=== PATIENT | female | born 1990 | race African-American/Black ===

== ENCOUNTER → 2019-03-29 10:43 | Outpatient (CLI) | payer OTHER, SELFPAY ==
--- NOTE | ~2019-03-29 | MR_ITS ---
EXAMINATION: MR lumbar spine wo con DATE: 03/29/2019 11:21 INDICATION: Low back pain. Bilateral leg pain. TECHNIQUE: Magnetic resonance imaging (MRI) of the lumbar spine was performed without intravenous con trast. Sequences included sagittal T2-weighted FSE, sagittal T2-weighted FS FSE, sagittal T1-weighted FSE, and axial T2-weighted FSE. COMPARISON: Lumbar spine MRI 09/01/2017, CT abdomen and pelvis 07/13/2018 FINDINGS: Bone alignment is normal. There are Schmorl's nodes at multiple levels. There is moderately decreased disc height at L5-S1. The distal spinal cord signal intensity is normal. The conus medulla ris is at L2. The following disc levels are specifically discussed: L1-L2: The disc does not extend beyond the endplate margin. There is mild bilateral facet joint osteo arthritis. There is no neural foraminal stenosis. There is no central canal stenosis. L2-L3: The disc does not extend beyond the endplate margin. There is mild bilateral facet joint osteo arthritis. There is no neural foraminal stenosis. There is no central canal stenosis. L3-L4: The disc does not extend beyond the endplate margin. There is mild bilateral facet joint osteo arthritis. There is no neural foraminal stenosis. There is no central canal stenosis. L4-L5: The disc is mildly bulging. There is mild bilateral facet joint osteoarthritis. There is mild bilateral neural foraminal stenosis. There is no central canal stenosis. L5-S1: The disc is bulging with superimposed right subarticular zone extrusion with mass effect on ri ght S1 nerve root in right lateral recess. There is mild right and moderate left facet joint osteoart hritis. There is mild bilateral neural foraminal stenosis. There is mild central canal stenosis. IMPRESSION: 1. Moderate lower lumbar spondylosis. Of note, an extrusion at L5-S1 exerts mass effect on right S1 n erve root. Reviewed, dictated and finalized at location [facility]. [employer]ER IMPRESSION: 1. Moderate lower lumbar spondylosis. Of note, an extrusion at L5-S1 exerts mas s effect on right S1 nerve root.
== END ==
PROVIDERS: Visit Provider Physician Assistant
DX: M47.26 Other spondylosis with radiculopathy, lumbar region (principal)
CPT/HCPCS: 72148

== ENCOUNTER 2020-03-04 02:04 | Outpatient (CLI) | payer BC, SELFPAY ==
[2020-03-04 20:39] LABS: SARS-CoV-2 RNA PCR Negative
== END 2020-03-04 02:05 | disposition home or self-care (01) ==
LOC: ANHCOVIDDT 02:05
PROVIDERS: PCP Family Medicine; Visit Provider Internal Medicine Gastroenterology
DX: Z01.812 Encounter for preprocedural laboratory examination (principal); Z20.828 Contact with and (suspected) exposure to other viral communicable diseases
CPT/HCPCS: 87635; C9803; U0003

== ENCOUNTER 2020-03-07 01:32 | Day surgery (SDC) | payer BC, SELFPAY ==
[2020-03-01 14:11] VITALS: BMI 25.9
--- NOTE | 2020-03-07 08:08 | WPDANESEPPF ---
Anes - Initial Pre Proc Eval Procedure: Operation Date: 03/07/20 11:00 Proposed Procedures p Colonoscopy - Som Tabares MD Date/Time: 03/07/20 08:08 Surgeon: Som Tabares MD Pre Op Diagnosis: Anemia/ Pos Hemoccult Card Patient Data Age: 29 Gender: F Height: 1.7 m Weight: 75 kg Allergies Allergy/AdvReac Type Severity Reaction Status Date / Time omeprazole Allergy Mild Dizziness Verified 03/07/20 10:23 Home Medications Medication Instructions Recorded Confirmed Type pantoprazole 40 mg tablet,delayed 40 mg PO QAM #30 tablet 02/23/20 03/01/20 Rx release cimetidine 400 mg tablet 400 mg PO DAILY PRN tablet 02/29/20 03/01/20 History ergocalciferol (vitamin D2) 1,250 1,250 mcg PO WEEKLY 02/29/20 03/01/20 History mcg (50,000 unit) capsule medroxyprogesterone 150 mg/mL 150 mg IM [id number] 02/29/20 03/01/20 History intramuscular suspension Patient hx anesthesia problems: none Family hx anesthesia problems: none PMFSH Past Medical History Medical History (Updated 02/29/20 @ 12:02 by Rachael Cote MD) Abnormal colonoscopy .2018 ileocolonic anastomosis ulcer - benign Colon ulcer ileocolonic anastomosis ulcer - benign .2018 colonoscopy Intervertebral disc disorder with radiculopathy of lumbar region Iron deficiency anemia hx of pediatric colon surgery .2018 colonoscopy: ileocolonic anastomosis ulcer - benign Sciatic leg pain Ulcer of intestine (05/23/18) ileocolonic anastomosis ulcer - benign .2018 colonoscopy Vitamin D deficiency, unspecified Surgical History Surgical History (Updated 02/29/20 @ 12:02 by Rachael Cote MD) Hx laparoscopic cholecystectomy 2019 Family History Family History (Updated 04/11/18 @ 08:46 by DOCTOR UNKNOWN) Father Cerebrovascular accident Patient's father is in good health Mother Patient's mother is in good health Other Diabetes mellitus Social History Social History Smoking status: Never smoker Alcohol intake: current Drinks per week: 1 Substance use: never Substance use type: does not use Living arrangements: with family Spiritual care concerns: No Anes - Eval Final PreProcedure Day of Procedure 03/07/20 08:08 Patient weight: overweight Heart: regular rate and rhythm Lungs: clear to auscultation and normal air movement Airway: Mallampati scale class II Neurological: alert and oriented Last oral intake: >/= 8 hours ASA classification: II Emergent: no Anesthetic plan: proceed Anesthesia type and monitoring: general GIVS Informed Consent: The patient's anesthetic plan and its attendant risks and benefits were discussed with the patient/family/POA. Questions were solicited and answers provided to the satisfaction of the patient/family/POA.
[2020-03-07 10:14] VITALS: BMI 24.1
[2020-03-07] MEDS: LACTATED RINGERS 1,000 ML 150 ML IV CONT (10:47)
--- NOTE | 2020-03-07 11:18 | WPDGICN ---
Assessment and Plan Assessment and plan (1) Iron deficiency anemia, unspecified: Code(s): D50.9 - Iron deficiency anemia, unspecified Status: Acute Assessment and Plan: Because of ongoing iron deficiency anemia colonoscopy an EGD will be performed today. Patient has a history of reflux as well as a history of an anastomotic colon ulcer. Long-term iron replacement is suggested. Follow-up CBC at intervals in the future also advised. Consider menstrual loss contributing to this as well depending on GI endoscopy findings. (2) GERD without esophagitis: Code(s): K21.9 - Gastro-esophageal reflux disease without esophagitis Status: Acute Assessment and Plan: Patient's GE reflux disease will be reassessed by EGD today. Because of ongoing iron deficiency. (3) Colon ulcer: Code(s): K63.3 - Ulcer of intestine Status: Acute Assessment and Plan: Patient has a history of an anastomotic colon ulcer after previous colon resection this with because of iron deficiency anemia follow-up colonoscopy will be performed. GI Consult Note Consult date/time: 03/07/20 11:18 HPI: Evonne Munoz is a 29 year old female Seen in evaluation at the request of Dr. Christiano Cote. Patient found to have routine iron deficiency anemia on routine screening exam. Patient denies any obvious bleeding. He denies abdominal pain. Current weight appetite bowel movements are normal. Patient has had no additional blood loss. Denies any blood in urine. Denies any bruises. Denies any nose bleeds. Family history is noncontributory. Patient has been treated with cimetidine and Protonix for dyspepsia. She has a history of partial colectomy period any history of an ileocolonic anastomotic ulcer in April 2018. Review of Systems Review of Systems: All systems reviewed & are unremarkable except as noted in HPI and below PMFSH Past Medical History Medical History (Updated 03/07/20 @ 11:20 by Som Tabares MD) Abnormal colonoscopy .2018 ileocolonic anastomosis ulcer - benign Colon ulcer ileocolonic anastomosis ulcer - benign .2018 colonoscopy Intervertebral disc disorder with radiculopathy of lumbar region Iron deficiency anemia hx of pediatric colon surgery .2018 colonoscopy: ileocolonic anastomosis ulcer - benign Sciatic leg pain Ulcer of intestine (05/23/18) ileocolonic anastomosis ulcer - benign .2018 colonoscopy Vitamin D deficiency, unspecified Surgical History Surgical History (Updated 02/29/20 @ 12:02 by Rachael Cote MD) Hx laparoscopic cholecystectomy 2019 Family History Family History (Updated 04/11/18 @ 08:46 by DOCTOR UNKNOWN) Father Cerebrovascular accident Patient's father is in good health Mother Patient's mother is in good health Other Diabetes mellitus Social History Social History Smoking status: Never smoker Alcohol intake: current Drinks per week: 1 Substance use: never Substance use type: does not use Living arrangements: with family Spiritual care concerns: No Meds Home Medications and Allergies Home Medications Medication Instructions Recorded Confirmed Type pantoprazole 40 mg tablet,delayed 40 mg PO QAM #30 tablet 02/23/20 03/01/20 Rx release cimetidine 400 mg tablet 400 mg PO DAILY PRN tablet 02/29/20 03/01/20 History ergocalciferol (vitamin D2) 1,250 1,250 mcg PO WEEKLY 02/29/20 03/01/20 History mcg (50,000 unit) capsule medroxyprogesterone 150 mg/mL 150 mg IM [id number] 02/29/20 03/01/20 History intramuscular suspension Allergies Allergy/AdvReac Type Severity Reaction Status Date / Time omeprazole Allergy Mild Dizziness Verified 03/07/20 10:23 Exam Narrative: Exam Narrative: Physical exam reveals patient to be alert. Vital signs stable. HEENT exam unremarkable. Lungs are clear to auscultation and percussion. Heart is without murmur or extra sounds. Abdomi
--- NOTE | 2020-03-07 12:05 | SUR.OPER ---
COLONOSCOPY START 1148, END 1155 EGD START 1201, END 1203
[2020-03-07 12:10] VITALS: BP 81/52; PULSE 70; RESP 20; O2SAT 100
[2020-03-07 12:20] VITALS: BP 90/56; PULSE 81; RESP 20; O2SAT 100
[2020-03-07 12:30] VITALS: BP 95/63; PULSE 62; RESP 17; O2SAT 100
== END 2020-03-07 12:42 | disposition home or self-care (01) ==
PROVIDERS: PCP Family Medicine; Visit Provider Internal Medicine Gastroenterology
PROC: 0DJD8ZZ Inspection of Lower Intestinal Tract, Via Natural or Artificial Opening Endoscopic (ICD-10-PCS; CPT 45378; principal; 2020-03-07 11:00)
DX: D50.9 Iron deficiency anemia, unspecified (principal); K21.9 Gastro-esophageal reflux disease without esophagitis; K63.89 Other specified diseases of intestine; K63.3 Ulcer of intestine; Z90.49 Acquired absence of other specified parts of digestive tract; Z98.0 Intestinal bypass and anastomosis status; E55.9 Vitamin D deficiency, unspecified
CPT/HCPCS: 43235; 45380; 88305; J2704; J7120

== ENCOUNTER 2020-08-07 14:09 | Outpatient (RCR) | payer BC, OTHER, SELFPAY ==
[2020-08-07] VITALS (7 sets, daily range): BP systolic 103–109; BP diastolic 59–69; PULSE 78–92; RESP 15–16; TEMP 36.4–36.8; O2SAT 96–100
[2020-08-07 15:04] LABS: Hematocrit 22.6 % (37.0-47.0)
[2020-08-07 15:09] LABS: Hemoglobin 6.2 g/dL (12.0-15.0)
[2020-08-07] MEDS: diphenhydrAMINE HCl CAP 25 MG CAPSULE PO (15:10)
[2020-08-07] MEDS: ACETAMINOPHEN 325 MG TABLET 650 MG PO (15:10)
[2020-08-07] MEDS: SODIUM CHLORIDE 0.9% IV 250 ML 30 ML IV CONT (15:10)
[2020-08-07] MEDS: TUBING, BLOOD PLUM PUMP TUBING 1 EACH XX (15:30)
== END 2020-11-04 23:59 | disposition home or self-care (01) ==
LOC: ANHCPCTRAN 14:09
PROVIDERS: PCP Family Medicine; Visit Provider Internal Medicine Medical Oncology
DX: D64.9 Anemia, unspecified (principal)
CPT/HCPCS: 36415; 36430; 85014; 85018; 86850; 86900; 86901; 86920; A9270; J7050; P9016

== ENCOUNTER → 2020-09-02 02:27 | Outpatient (CLI) | payer BC, OTHER, SELFPAY ==
[2020-09-02 19:19] LABS: SARS-CoV-2 RNA PCR Negative
== END ==
PROVIDERS: PCP Family Medicine; Visit Provider Internal Medicine Gastroenterology
DX: Z01.818 Encounter for other preprocedural examination (principal); Z20.822 Contact with and (suspected) exposure to COVID-19
CPT/HCPCS: C9803; U0003; U0005

== ENCOUNTER 2020-09-02 05:44 | Outpatient (CLI) | payer BC, OTHER, SELFPAY ==
[2020-08-20 15:16] VITALS: BMI 25.9
--- NOTE | 2020-09-02 06:55 | SUR.OPER ---
Patient brought to GI Lab. Instructions for patient undergoing PATENCY Capsule Endoscopy reviewed with patient. Consent form signed. Patient swallowed capsule with 12 ozs of water . Patient instructed they may have clear liquids at 0830 this AM and eat or drink at 1030 this AM. Patient instructed to WATCH FOR CAPSULE TO PASS GET KUB AFTER 30 HOURS IF NOT SEEN call [phone] or to return to the hospital ER if any nausea and vomiting or abdominal pain is experienced.
== END 2020-09-02 05:45 | disposition home or self-care (01) ==
PROVIDERS: PCP Family Medicine; Visit Provider Internal Medicine Gastroenterology
PROC: 0DJ07ZZ Inspection of Upper Intestinal Tract, Via Natural or Artificial Opening (ICD-10-PCS; CPT 91110; principal; 2020-09-02 07:00)
DX: D50.9 Iron deficiency anemia, unspecified (principal); K63.3 Ulcer of intestine
CPT/HCPCS: 91110

== ENCOUNTER 2020-09-04 15:14 | Outpatient (CLI) | payer BC, OTHER, SELFPAY ==
--- NOTE | ~2020-09-04 | XR_ITS ---
XR abdomen/kub 1V DATE: 09/04/2020 15:46 INDICATION: Given patency capsule study 09/02/2020. Anemia. TECHNIQUE: AP projection, 2 views COMPARISON: None FINDINGS: Surgical clips, right upper quadrant, consistent with cholecystectomy. The lung bases appear clear. No pleural effusions are evident. No visceromegaly is evident. The psoas shadows appear intact. There is no evidence of bowel obstructi on. IMPRESSION: Nonspecific abdomen Status post cholecystectomy Reviewed, dictated and finalized at [facility]. Reviewed, dictated and finalized at location [facility].
== END 2020-09-04 15:15 | disposition home or self-care (01) ==
LOC: ANHIMG 15:22
PROVIDERS: PCP Family Medicine; Visit Provider Internal Medicine Gastroenterology
DX: Z13.0 Encounter for screening for diseases of the blood and blood-forming organs and certain disorders involving the immune mechanism (principal); Z90.49 Acquired absence of other specified parts of digestive tract
CPT/HCPCS: 74018

== ENCOUNTER 2020-09-05 00:38 | Day surgery (SDC) | payer OTHER, BC, SELFPAY ==
[2020-08-28 17:48] VITALS: BMI 25.9
[2020-09-05 06:31] VITALS: BP 105/64; PULSE 77; RESP 16; TEMP 36.2; O2SAT 100; BMI 24.3
[2020-09-05] MEDS: LACTATED RINGERS 1,000 ML 150 ML IV CONT (06:44)
--- NOTE | 2020-09-05 06:47 | WPDANESEPPF ---
Anes - Initial Pre Proc Eval Procedure: Operation Date: 09/05/20 07:00 Proposed Procedures p Flexible Sigmoidoscopy - Som Tabares MD s [place] Capsule Endoscopy - Som Tabares MD Date/Time: 09/05/20 06:47 Surgeon: Som Tabares MD Pre Op Diagnosis: iron def. anemia, colon ulcer Patient Data Age: 30 Gender: F Height: 5 ft 7 in Weight: 70.4 kg Last Vital Signs Temp 36.2 C L 09/05/20 06:31 Pulse 77 09/05/20 06:31 Resp 16 09/05/20 06:31 BP 105/64 09/05/20 06:31 Pulse Ox 100 09/05/20 06:31 Allergies Allergy/AdvReac Type Severity Reaction Status Date / Time omeprazole Allergy Mild Dizziness Verified 09/05/20 06:29 Home Medications Medication Instructions Recorded Confirmed Type ergocalciferol (vitamin D2) 1,250 1,250 mcg PO WEEKLY 02/29/20 08/28/20 History mcg (50,000 unit) capsule medroxyprogesterone 150 mg/mL 150 mg IM [id number] 02/29/20 08/28/20 History intramuscular suspension ferrous sulfate 325 mg PO BID 03/13/20 08/28/20 History mesalamine 800 mg PO TID 03/13/20 08/28/20 History Patient hx anesthesia problems: none Family hx anesthesia problems: none PMFSH Past Medical History Medical History Abnormal colonoscopy colonoscopy:fedder: ulcers at ileosigmoid anastomosis ileocolonic anastomosis ulcer - benign Colon ulcer colonoscopy:fedder:recurrent ulcers at ileosigmoid anastomosis colonoscopy ileocolonic anastomosis ulcer - benign Intervertebral disc disorder with radiculopathy of lumbar region Iron deficiency anemia hx of pediatric colon surgery colonoscopy: ileocolonic anastomosis ulcer - benign Sciatic leg pain Ulcer of intestine (05/23/18) ileocolonic anastomosis ulcer - benign colonoscopy Vitamin D deficiency, unspecified Surgical History Surgical History History of esophagogastroduodenoscopy (EGD) 03.06.20 normal History of partial colectomy Hx laparoscopic cholecystectomy 2019 Family History Family History Father Cerebrovascular accident Patient's father is in good health Mother Patient's mother is in good health Other Diabetes mellitus Social History Social History Smoking status: Never smoker Second hand tobacco smoke exposure: No Alcohol intake: current Drinks per week: 1 Substance use: never Substance use type: does not use Living arrangements: with family Gender identity (if verbalized by the patient): Female Spiritual care concerns: No Anes - Eval Final PreProcedure Day of Procedure 09/05/20 06:47 Patient weight: normal Heart: regular rate and rhythm Lungs: clear to auscultation Airway: Mallampati scale class 1 Neurological: alert and oriented Last oral intake: >/= 8 hours ASA classification: II Emergent: no Anesthetic plan: proceed Anesthesia type and monitoring: general GIVS and standard monitoring Informed Consent: The patient's anesthetic plan and its attendant risks and benefits were discussed with the patient/family/POA. Questions were solicited and answers provided to the satisfaction of the patient/family/POA.
--- NOTE | 2020-09-05 07:22 | WPDGICN ---
Assessment and Plan Assessment and plan (1) Iron deficiency anemia, unspecified: Code(s): D50.9 - Iron deficiency anemia, unspecified Status: Acute Assessment and Plan: Patient has ongoing iron deficiency anemia. Now followed by Hematology as well. Most likely etiology is been ileocolonic ulcerations. Patient is currently on a trial of mesalamine. But this appears to be persistent. Iron replacement under the direction hematology. Other potential etiologies for her anemia include long-term PPI use. This has been advised to be held. She also continues to have menses which may contribute to her anemia. Follow-up colonoscopy to be performed today. 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 Subtotal colectomy has been identified. (3) Colon ulcer: Code(s): K63.3 - Ulcer of intestine Status: Acute Assessment and Plan: Patient has a history of ileocolonic ulceration. No specific etiology for this is evident. Plan is to repeat evaluation with endoscopy today. Additional biopsies will be taken. Patient has been on a trial of mesalamine. Which will be reconsidered. (4) GERD without esophagitis: Code(s): K21.9 - Gastro-esophageal reflux disease without esophagitis Status: Acute Assessment and Plan: Patient has a history of GE reflux disease. However no longer complains of heartburn. Recent EGD in April of 2018 and again in February of 2020 were both unremarkable. Ppi therapy has been stopped. Antacids can be taken as needed. GI Consult Note Consult date/time: 09/05/20 07:22 HPI: Evonne Munoz is a 30 year old female Seen in evaluation at the request of Dr. Cote. Patient has a history of iron deficiency anemia identified on routine screening April of 2018. At that time ileocolonic an ulcer anastomosis was identified. 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 She had a subtotal colectomy. She has been treated for GE reflux disease. In February of 2020 follow-up flexible sigmoidoscopy revealed persistent ulceration at the ileocolonic anastomosis. EGD was unremarkable. She is continued to be anemic with iron deficient indices since that time. She now sees hematology, Dr. Baez. Because of ongoing iron deficiency patient is now on a trial of mesalamine. Her PPI therapy has been discontinued because of recent normal EGD. No ongoing heartburn. Patient reports that she has normal menses. Her appetite is normal. Her activity is good. She denies any obvious blood in her stools. She has no obvious bleeding elsewhere. No bruising. She has received transfusions and iron replacement under the direction of hematology. Patient presents today for follow-up exam to determine status of ileocolonic ulcerations. Small bowel capsule study will be performed later in the day. Review of Systems Review of Systems: All systems reviewed & are unremarkable except as noted in HPI and below PMFSH Past Medical History Medical History Abnormal colonoscopy colonoscopy:fedder: ulcers at ileosigmoid anastomosis ileocolonic anastomosis ulcer - benign Colon ulcer colonoscopy:fedder:recurrent ulcers at ileosigmoid anastomosis .2018 colonoscopy ileocolonic anastomosis ulcer - benign Intervertebral disc disorder with radiculopathy of lumbar region Iron deficiency anemia hx of pediatric colon surgery colonoscopy: ileocolonic anastomosis ulcer - benign Sciatic leg pain Ulcer of intestine (05/23/18) ileocolonic anastomosis ulcer - benign .2018 colonoscopy Vitamin D deficiency, unspecified Surgical History Surgical History (Reviewed 09/05/20 @ 06:47 by Diomdees Walsh
[2020-09-05 07:26] VITALS: BP 92/63; PULSE 68; RESP 20; O2SAT 100
[2020-09-05 07:36] VITALS: BP 97/63; PULSE 64; RESP 18; O2SAT 100
[2020-09-05 07:45] VITALS: BP 105/49; PULSE 69; RESP 22; O2SAT 100
== END 2020-09-05 08:36 | disposition home or self-care (01) ==
PROVIDERS: PCP Family Medicine; Visit Provider Internal Medicine Gastroenterology
PROC: 0DJD8ZZ Inspection of Lower Intestinal Tract, Via Natural or Artificial Opening Endoscopic (ICD-10-PCS; CPT 45330; principal; 2020-09-05 07:00)
PROC: 0DJ07ZZ Inspection of Upper Intestinal Tract, Via Natural or Artificial Opening (ICD-10-PCS; CPT 91110; 2020-09-05 07:00)
DX: D50.9 Iron deficiency anemia, unspecified (principal); K52.9 Noninfective gastroenteritis and colitis, unspecified; K63.3 Ulcer of intestine; K21.9 Gastro-esophageal reflux disease without esophagitis; Z90.49 Acquired absence of other specified parts of digestive tract; Z98.0 Intestinal bypass and anastomosis status
CPT/HCPCS: 45331; 88305; 91110; J2704; J7120

== ENCOUNTER 2022-02-11 06:36 | Observation (INO) | payer OTHER, SELFPAY ==
[2022-02-11] VITALS (18 sets, daily range): BP systolic 103–138; BP diastolic 64–84; PULSE 72–91; RESP 14–22; TEMP 36.4–37.3; O2SAT 97–100
--- NOTE | 2022-02-11 07:10 | PC.NURSE ---
Patient report given to ENRIQUE Bernabe. All questions answered and care of patient transferred.
[2022-02-11 07:45] LABS: INR 1.1; Prothrombin Time 13.6 Seconds (11.1-14.7)
[2022-02-11 07:46] LABS: Partial Thromboplastin Time 22.2 SECONDS (22.3-36.8)
[2022-02-11 07:49] LABS: Anion Gap 10 mmol/L (8-16); Blood Urea Nitrogen 10 mg/dL (7-17); Calcium 8.3 mg/dL (8.4-10.2); Carbon Dioxide 17 mmol/L (22-30); Chloride 110 mmol/L (98-107); Estimated CRCL calculation 87 ml/min; Estimated Glomerular Filt Rate > 60; Glucose 95 mg/dL (65-110); Potassium 3.7 mmol/L (3.4-5.0); Sodium 137 mmol/L (137-145)
[2022-02-11 07:53] LABS: Basophils Absolute Auto 0.1 K/mm3 (0.0-0.1); Eosinophils Absolute Auto 0.1 K/mm3 (0-0.3); Eosinophils Percent Auto 1.5 % (0-4.4); Immature Granulocyte Absolute 0.02 K/mm3 (0.00-0.031); Immature Granulocyte Percent A 0.3 % (0-0.5); Immature Platelet Fraction Pct 15.4 % (0.9-11.2); Lymphocytes Absolute Auto 2.07 K/mm3 (0.9-3.2); Lymphocytes Percent Auto 33.6 % (18.3-44.2); Mean Corpuscular HGB Conc 24.4 g/dl (32-36); Mean Corpuscular Volume 57.4 fl (80-100); Monocytes Absolute Auto 0.5 K/mm3 (0.1-0.6); Monocytes Percent Auto 8.4 % (2.6-8.5); Neutrophils Absolute Auto 3.4 K/mm3 (1.3-6.7); Neutrophils Percent Auto 55.2 % (45.5-73.1); Platelet Count Result 261 k/mm3 (150-375); Red Blood Count 3.64 M/mm3 (4.2-5.4); White Blood Count 6.2 K/mm3 (4.5-10.0)
[2022-02-11 07:55] LABS: Hematocrit 20.9 % (37.0-47.0); Hemoglobin 5.1 g/dL (12.0-15.0)
[2022-02-11 07:57] LABS: Hypochromasia 3+ (NORMAL); Platelet Estimate Adequate (Adequate)
[2022-02-11 07:58] LABS: Anisocytosis 3+ (NORMAL); Ovalocytes 2+ (NORMAL); Poikilocytosis 3+ (NORMAL); Schistocytes 2+ (NORMAL); Target Cells 2+ (NORMAL); Tear Drop Cells 2+ (NORMAL)
[2022-02-11 08:57] LABS: SARS-CoV-2 RNA PCR Negative
--- NOTE | 2022-02-11 08:59 | ED.GENADULT ---
HPI - General Adult General Chief complaint: Recheck/Abnormal Lab/Rx Stated complaint: anemia Time Seen by Provider: 02/11/22 07:29 Source: patient Mode of arrival: ambulatory Limitations: no limitations History of Present Illness HPI narrative: 31 years old dark skinned female presents with feeling tired weak lethargic sleepy shortness of breath for the last few days/weeks, history of iron deficiency anemia 3 years ago, last blood transfusion 1 year ago, history of 80% colectomy when she was a baby, currently on Depo shot, no menstrual cycle for the last 13 years. She denies any fever, chills, nausea, vomiting, chest pain or abdominal pain. Last time was seen by her family physician over 2 years ago, currently on iron supplement. Related Data Home Medications Medication Instructions Recorded Confirmed ergocalciferol (vitamin D2) 1,250 1,250 mcg PO WEEKLY 02/29/20 08/28/20 mcg (50,000 unit) capsule medroxyprogesterone 150 mg/mL 150 mg IM [id number] 02/29/20 09/05/20 intramuscular suspension (Depo-Provera) ferrous sulfate 325 mg (65 mg 325 mg PO BID 03/13/20 08/28/20 iron) tablet mesalamine 800 mg tablet,delayed 800 mg PO TID 03/13/20 08/28/20 release Allergies Allergy/AdvReac Type Severity Reaction Status Date / Time omeprazole AdvReac Mild Dizziness Verified 02/11/22 06:37 Review of Systems Review of Systems: All systems reviewed & are unremarkable except as noted in HPI and below PMFSH Past Medical History Medical History Abnormal colonoscopy colonoscopy:fedder: ulcers at ileosigmoid anastomosis ileocolonic anastomosis ulcer - benign Colon ulcer colonoscopy:fedder:recurrent ulcers at ileosigmoid anastomosis colonoscopy ileocolonic anastomosis ulcer - benign Intervertebral disc disorder with radiculopathy of lumbar region Iron deficiency anemia hx of pediatric colon surgery colonoscopy: ileocolonic anastomosis ulcer - benign Sciatic leg pain Ulcer of intestine (05/23/18) ileocolonic anastomosis ulcer - benign colonoscopy Vitamin D deficiency, unspecified Surgical History Surgical History History of esophagogastroduodenoscopy (EGD) 11..20 normal History of partial colectomy Hx laparoscopic cholecystectomy 2019 Family History Family History Father Cerebrovascular accident Patient's father is in good health Mother Patient's mother is in good health Other Diabetes mellitus Social History Social History Smoking status: Never smoker Second hand tobacco smoke exposure: No Alcohol intake: current Drinks per week: 1 Substance use: never Substance use type: does not use Gender identity (if verbalized by the patient): Female Spiritual care concerns: No Exam Narrative: General appearance: Well-developed, well-nourished Skin: Pale Head: Normocephalic, nontraumatic Eyes: Clear conjunctiva ENT: Oropharynx normal, ears normal, nose normal Neck: Supple, nontender Chest and respiratory: Airway patent, no respiratory distress, no accessory muscle use Heart: Regular rate/rhythm Abdomen: Soft, nontender, no organomegaly, quiet bowel sounds Vascular: Normal peripheral pulses, normal capillary refill. Musculoskeletal: Normal range of motion, nontender back Neurologic: Alert and oriented ?3, SUPERINTENDENT OVERHEAD DISTRIBUTION is normal as tested, no gross motor deficit Course Vital Signs Vital signs: Vital Signs Temperature 36.4 C 02/11/22 06:46 Pulse Ra
[2022-02-11] MEDS: SODIUM CHLORIDE 0.9% IV 250 ML 30 ML IV CONT (09:41)
[2022-02-11] MEDS: TUBING, BLOOD PLUM PUMP TUBING 1 EACH XX (09:41)
[2022-02-11 10:57] LABS: Iron 16 ug/dL (37-170)
[2022-02-11 11:06] LABS: Percent Iron Saturation 3 % (20-50)
--- NOTE | 2022-02-11 11:26 | ADMGEN ---
This patient, Evonne Munoz, was admitted to 3 [facility] Surg Room 301-01. Patient/family oriented to hospital policies and general routines including ID bracelet, bed and alarms, visiting hours, pain management, procedures, bathroom and other care routines, personal items, smoking policy, room service/diet, and visiting hours. Information on how to activate the Rapid Response Team has been discussed. Patient/Family are encouraged to report perceived risks to care and to ask questions if they do not understand what they are told or what they should do. Patient in bed with no complaints at this time.
[2022-02-11 11:35] LABS: Ferritin 2.99 ng/mL (6.24-137)
--- NOTE | 2022-02-11 14:42 | PM.IMHP ---
H&P: HPI History of Present Illness Date/Time: 02/11/22 14:42 Chief Complaint: Anemia Narrative: This is a 31-year-old female patient who came to the emergency room after feeling tired weak and lethargic. 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 The patient does have a history of iron deficiency anemia. She stated that the iron upsets her stomach. She did find some liquid iron that she could take but does not always take it. She has had iron deficiency anemia for 3 years. Her last blood transfusion was 1 year ago. 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 At 1 point the patient was told that her iron deficiency was due to her. However she has had no minutes Petterchak cycle for the last 13 years and has been on the Depo shot. The last time she saw her primary care doctor was 2 years ago. She has no active bleeding at this time no GI bleed no hematemesis. Her H&H is 5.1 and 20.9. Her iron is 16 and her TIBC is 561. Ferritin is 2.99. She is negative for COVID. The patient is being admitted to observation status on the date of service of 02/11/2022. Review of Systems Review of Systems: See HPI All systems reviewed & are unremarkable except as noted in HPI and below Constitutional: Constitutional: Reports as per HPI and Reports no additional constitutional complaints Eyes: Eyes: Reports as per HPI and Reports no additional eye complaints ENT: Reports system reviewed and no additional complaints, except as documented and Reports Normal hearing present Cardiovascular: Cardiovascular: Reports no additional cardiovascular complaints Respiratory: Respiratory: Reports no additional respiratory complaints and Reports no additional respiratory complaints Gastrointestinal: Gastrointestinal: Reports as per HPI and Reports no additional gastrointestinal complaints Musculoskeletal: Musculoskeletal: Reports no additional musculoskeletal complaints Integumentary/Breasts: Skin/Breast: Reports system reviewed and no additional complaints, except as docu and Reports as per HPI Neurologic: Reports system reviewed and no additional complaints, except as documented, Reports as per HPI and Reports Normal hearing present Psychiatric: Psychiatric: Reports no additional psychiatric complaints and Reports as per HPI Endocrine: Endocrine: Reports no additional endocrine complaints Hematologic/Lymphatic: Hematologic/Lymphatic: Reports no additional hematologic/lymphatic complaints Allergic/Immunologic: Allergic/Immunologic: Reports no additional allergic/immunologic complaints PMFSH Past Medical History Medical History Abnormal colonoscopy colonoscopy:fedder: ulcers at ileosigmoid anastomosis .2018 ileocolonic anastomosis ulcer - benign Colon ulcer colonoscopy:fedder:recurrent ulcers at ileosigmoid anastomosis .2018 colonoscopy ileocolonic anastomosis ulcer - benign Intervertebral disc disorder with radiculopathy of lumbar region Iron deficiency anemia hx of pediatric colon surgery colonoscopy: ileocolonic anastomosis ulcer - benign Sciatic leg pain Ulcer of intestine (05/23/18) ileocolonic anastomosis ulcer - benign .2018 colonoscopy Vitamin D deficiency, unspecified Surgical History Surgical History (Updated 02/11/22 @ 14:59 by Bethany Francois NP) H/O inguinal hernia repair History of esophagogastroduodenoscopy (EGD) 03.06.20 normal History of partial colectomy Hx laparoscopic cholecystectomy 2018 Family History Family History Father Cerebrovascular accident Patient's father is in good health Mother Patient's mother is in good health Other Diabetes mellitus Social History Social History (Updated 02/11/22 @ 14:55 by Elena
[2022-02-11] MEDS: POLYSACCHARIDE IRON COMPLEX 150 MG CAPSULE PO (16:32)
[2022-02-11] MEDS: IRON SUCROSE COMPLEX 200 MG in SODIUM CHLORIDE 0.9% IV 50 ML 120 MG IVPB (16:32)
[2022-02-11 17:17] LABS: Hematocrit 28.9 % (37.0-47.0); Hemoglobin 8.1 g/dL (12.0-15.0)
[2022-02-11 18:16] LABS: IFOB Positive Control Positive; Immunochemical Fecal Occult Bl Positive (N)
== END 2022-02-11 18:12 | disposition left against medical advice (07) ==
LOC: ANHED 09:03 → ANH3MEDSUR 10:50
PROVIDERS: Emergency Medicine; Nurse Practitioner; Admitting Provider Internal Medicine; Emergency Provider Emergency Medicine; PCP Family Medicine; Visit Provider Internal Medicine
DX: D64.9 Anemia, unspecified (principal); R53.83 Other fatigue; R53.1 Weakness; R06.02 Shortness of breath; Z87.898 Personal history of other specified conditions; Z86.2 Personal history of diseases of the blood and blood-forming organs and certain disorders involving the immune mechanism; Z90.49 Acquired absence of other specified parts of digestive tract; Z53.29 Procedure and treatment not carried out because of patient's decision for other reasons; E55.9 Vitamin D deficiency, unspecified; Z20.822 Contact with and (suspected) exposure to COVID-19; Z79.3 Long term (current) use of hormonal contraceptives; Z79.899 Other long term (current) drug therapy
CPT/HCPCS: 36415; 36430; 80048; 82274; 82728; 83540; 83550; 85014; 85018; 85025; 85055; 85610; 85730; 86850; 86900; 86901; 86920; 96374; 99285; A9270; C9803; G0378; J1756; J7050; P9016; U0003; U0005

== ENCOUNTER → 2022-03-10 08:44 | Outpatient (CLI) | payer OTHER, SELFPAY ==
--- NOTE | ~2022-03-10 | DEXA_ITS ---
Bone Density Report Name: MARS VYAS Age: 31 Sex: Female Ethnicity: White Date of : 1990 Indication: Depo Shot Usage Referring Provider: HELEN, DEBBIE Study: Bone densitometry was performed. Exam Date: March 10, 2022 Accession number: [id number] Bone Density: Region BMD T-score Z-score Classification AP Spine (L1-L4) 1.089 0.4 0.4 Normal Femoral Neck (Left) 0.687 -1.5 -1.4 Osteopenia Total Hip (Left) 0.869 -0.6 -0.6 Normal Femoral Neck (Right) 0.699 -1.4 -1.3 Osteopenia Total Hip (Right) 0.848 -0.8 -0.7 Normal Total Hip Mean 0.859 -0.7 -0.7 Normal World Health Organization criteria for BMD impression classify patients as: Normal (T-score at or above -1.0), Osteopenia (T-score between -1.0 and -2.5), or Osteoporosis (T-score at or below -2.5). 10-year Fracture Risk: FRAX not reported because: Premenopausal woman Previous Exams: Region Exam Age BMD T-score BMD Change BMD Change Date g/cm2 vs Baseline vs Previous AP Spine(L1-L4) 03/10/2022 31 1.089 0.4 -0.055* -0.055* 05/11/2018 28 1.144 0.9 Total Hip(Left) 03/10/2022 31 0.869 -0.6 -0.051* -0.051* 05/11/2018 28 0.920 -0.2 Total Hip(Right) 03/10/2022 31 0.848 -0.8 -0.040* -0.040* 05/11/2018 28 0.888 -0.4 *Denotes significance at 95% confidence level, LSC for AP Spine = 0.022 g/cm2, LSC for Total Hip = 0.027 g/cm2 Clinical Information Provided by Patient: Has used the following medications: Vitamin D, DEPO shot, MTV Patient maximum height was 67.75 No regular weight bearing exercise Drinks caffeinated beverages Onset of menses at age 14 Premenopausal Number of children 0 Missed period for more than 6 months in a row Impression: The patient's bone mass is within expected range for age, gender and ethnicity. The BMD for the AP Spine(L1-L4) decreased, changing by -0.055 since the last DXA exam. The BMD for the Total Hip(Left) decreased, changing by -0.051 since the last DXA exam. The BMD for the Total Hip(Right) decreased, changing by -0.040 since the last DXA exam. Discussion: BONE DENSITY IS WITHIN EXPECTED LIMITS FOR AGE, SEX AND RACE. Bone density is within expected limits for age, sex and race at all sites measured. The patient should follow a healthful lifestyle (good nutrition with adequate calcium and vitamin D, and appropriate weight-bearing exercise). Follow-Up: Consider repeating this study in 2 years
== END ==
PROVIDERS: PCP Family Medicine; Visit Provider Nurse Practitioner
DX: Z78.0 Asymptomatic menopausal state (principal); Z13.820 Encounter for screening for osteoporosis; Z79.3 Long term (current) use of hormonal contraceptives; M85.852 Other specified disorders of bone density and structure, left thigh; M85.851 Other specified disorders of bone density and structure, right thigh
CPT/HCPCS: 77080

== ENCOUNTER 2022-09-11 08:04 | Outpatient (CLI) | payer OTHER, SELFPAY ==
[2022-09-11 09:00] LABS: Hematocrit 31.2 % (37.0-47.0); Hemoglobin 8.8 g/dL (12.0-15.0); Immature Platelet Fraction Pct 9.6 % (0.9-11.2); Mean Corpuscular HGB Conc 28.2 g/dl (32-36); Mean Corpuscular Hemoglobin 20.4 pg (26-34); Mean Corpuscular Volume 72.4 fl (80-100); Platelet Count Result 242 k/mm3 (150-375); Red Blood Count 4.31 M/mm3 (4.2-5.4); Red Cell Distribution Width 29.8 % (11.5-14.5); White Blood Count 6.2 K/mm3 (4.5-10.0)
[2022-09-11 09:24] LABS: Iron 30 ug/dL (37-170)
[2022-09-11 09:34] LABS: Percent Iron Saturation 7 % (20-50)
[2022-09-11 10:24] LABS: Folic Acid 11.7 ng/mL (2.76->20)
== END 2022-09-11 08:05 | disposition home or self-care (01) ==
PROVIDERS: PCP Family Medicine; Visit Provider Internal Medicine Hematology & Oncology
DX: D64.9 Anemia, unspecified (principal)
CPT/HCPCS: 36415; 82607; 82728; 82746; 83540; 83550; 85027; 85055

== ENCOUNTER 2024-11-28 15:20 | Outpatient (CLI) | payer OTHER, SELFPAY ==
--- OUTSIDE RECORDS SUMMARY | 2024-11-28 15:24 | XMS_ITS | Clinical Summary ---
Author Organization [facility] Address [address] [place] [address] Care Team Providers Care Auto Phone Installer Name Role Phone Rachael Cote MD Primary Care Provider [phone] Source Comments [facility],non-owned Affiliates and Associated Physician Practices is amultiple site organization consisting of ambulatory clinics and hospital sitesin [place], [place], [place] and [place]. This disclosure is being madepursuant to the Care Everywhere program and may not contain all information available regarding this patient. 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 Gender Identity Not on file Sexual Orientation Not on file Plan of Treatment Health Maintenance Due Date Last Done Comments HIV SCREENING 2006 HEPATITIS C SCREENING 04/08/2009 DTAP/TDAP/TD VACCINES (1 - Tdap) 2010 HEPATITIS B VACCINE (1 of 3 - 19+ 3-dose series) 2010 HPV VACCINE (1 - 3-dose SCDM series) 2018 COVID-19 VACCINE (1 - 2023-2 5 season) 2023 DEPRESSION SCREENING 04/26/2024 INFLUENZA VACCINE (#1) 2024 ZOSTER VACCINE (1 of 2) 2041 HIB VACCINE Aged Out No longer eligi ble based on patient's age to complete this topic MENINGOCOCCAL (Group B) VACC INE SHARED DECISION-MAKING Aged Out No longer eligibl e based on patient's age to complete this topic MENINGOCOCCAL GROUPS A/C/Y/W VACCINE Aged Out No longer eligible b ased on patient's age to complete this topic PNEUMOCOCCAL VACCINE Aged Out No long er eligible based on patient's age to complete this topic Insurance [facility] Address: [facility] CLAIMS [facility] [address] [place] [address] Care Teams Auto Phone Installer Relationship Specialty Start Date End Date Rachael Cote MD [address] [place] [address] PCP - General 05/31/18
--- OUTSIDE RECORDS SUMMARY | 2024-11-28 15:24 | XMS_ITS | Clinical Summary ---
Author Organization [facility] Address [address] [place] [address] Phone Care Team Providers Care Finance Consultant Name Role Phone Rachael Cote MD Primary Care Provider Allergies No known active allergies Medications cholecalcifero l, Vitamin D3, 50 mcg (2,000 unit) Tablet Take 2,000 Units by mouth daily. Active iron bis-gly/FA/C/B 12/Ca/succ (IRON-150 ORAL) Take 1 Tablet by mouth daily. Active medroxyPROGEST ERone (DEPO-PROVERA) 150 mg/mL Suspension Inject 150 mg by intramuscular injection every 90 days. Active Active Problems Problem Noted Date Diagnosed Date HNP (herniated nucleus pulposus), lumbar 020 Immunizations Immunization Administration Dates Next Due ([employer])(12 YR UP) COVID-19 VACCINE - EMERGENCY USE AUTHORIZATION, MRNA, [id number]) 30 MCG/0.3 ML IM SUSP 07/17/2020,06/25/2020 Influenza Seasonal Unspecified Formulation IM Social History Tobacco Use Types Packs/Day Years Used Date Smoking Tobacco: Never Smokeless Tobacco: Never Tobacco Cessation:Counseling Given: Not Answered Alcohol Use Standard Drinks/Week Comments Yes 1 (1 standard drink = 0.6 oz pur e alcohol) social occasional Comments No Sex and Gender Information Value Date Recorded Sex Assigned at Not on file 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 Gender Identity Not on file Sexual Orientation Not on file Last Filed Vital Signs Vital Sign Reading Time Taken Comments Blood Pressure 104/64 09/25/2022 10:58 AM CDT Pulse 93 09/25/2022 10:58 AM CDT Temperature 36.1 C (97 F) 09/25/2022 10:58 AM CDT Respiratory Rate 10 09/25/2022 10:58 AM CDT Oxygen Saturation 100% 09/25/2022 10:58 AM CDT Inhaled Oxygen Concentration - - Weight 76.7 kg (169 lb) 09/25/2022 10:58 AM CDT Height 170.2 cm (5' 7) 02/24/2022 8:56 AM CDT Body Mass Index 26.47 02/24/2022 8:56 AM CDT Plan of Treatment Health Maintenance Due Date Last Done Comments HPV VACCINES (1 - 3-dose series) 2006 DTAP/TDAP/TD VACCINES (1 - Tdap) 2010 HEPATITIS B VACCINES (1 of 3 - 19+ 3-dose series) 2010 HPV/Cotest (21-29) 2012 CERVICAL CANCER SCREENING 2021 HPV/Cotest (30-65) 2021 PAP SMEAR 2021 COVID-19 Vaccine (3 - 2023- season) 2023, 06/25/2020 INFLUENZA VACCINE (#1) 2024 02/29/2020, 2018 Medical Devices Implanted Type Area Gasket Maker Device Identifier Shelf Expiration Date Model / Serial / Lot Floseal Hemostatic Matrix Implanted:Qty: 1 on 05/22/2019 by Jairo Jansen MD at [facility] Hemostatic Right: Spine Lumbar [facility] 12/27/2019 [id number] / / [id number] Insurance [facility] Address: [address] [place] [address] [facility] Address: [address] [place] [address] Care Teams Finance Consultant Relationship Specialty Start Date End Date Rachael Cote MD PCP - General Family Practice 02/24/22
--- OUTSIDE RECORDS SUMMARY | 2024-11-28 15:24 | XMS_ITS | Continuity of Care Document ---
Author Name [facility] Organization [facility] Care Team Providers Care Foam Cutting Supervisor Name Role Phone [facility] Unavailable Unavailable Immunizations Combined list of available immunizations from the Department of Defense and Veterans Affairs facilities. Immunization Series Date Given Administered By Site Reaction Lot Number [id number] Code Drug [employer] Guidance Counselor Status Comments Source COVID-19, mRNA, LNP-S, PF, 30 mcg/0.3 mL dose, grayson-sucrose 2021 [employer], [employer] [place] (PFR) Not Given COVID-19, mRNA, LNP-S, PF, 30 mcg/0.3 mL dose, grayson-sucr ose [facility] Influenza, injectable, MDCK, preservative free, quadrivalent 2021 MADE, () Not Given Influenza , injectabl e, MDCK, preservat marc free, quadrival ent DoD Social History Combined list of available smoking, tobacco, and other social history from Department of Defense and Veterans Affairs facilities. Social History Type Response Date Comment Sour e This section is an empty social history section. DoD
--- OUTSIDE RECORDS SUMMARY | 2024-11-28 15:24 | XMS_ITS | Referral Summary ---
Author Organization [facility] Address [address] [place] [id number] Care Team Providers Care Technical Training Manager Name Role Phone Duy Baez MD Unavailable [phone] Rachael Cote MD Primary Care Provider + Som Tabares MD Unavailable [phone] Allergies Active Allergy Reactions Criticality Noted Date Comments Omeprazole Dizziness Low 04/01/2020 Medications mesalamine (ASACOL HD) 800 mg EC tablet TK 1 T PO TID 03/08/2020 Active medroxyPROGESTER one 150 mg/mL injection INJ 1 ML IM Q 12 WEEKS 01/10/2020 Active ergocalciferol (VITAMIN D) 50,000 unit capsule TK 1 C PO Q WEEK 02/05/2020 Active ferrous sulfate 325 mg (65 mg of elemental iron) tablet Take 1 tablet (325 mg total) by mouth 3 (three) times a day with meals 100 tablet 3 05/13/2020 Active Active Problems Problem Noted Date Diagnosed Date Iron deficiency anemia due to chronic blood loss 06/20/2020 History of necrotizing enterocolitis 06/20/2020 Ulceration of colon determined by endoscopy 05/28 Menometrorrhagia 06/20/2020 Immunizations Immunization Administration Dates Next Due Influenza, Quadrivalent, Rec ombinant, Egg Free, Preservative Free, Intramuscular 02/29/2020 Pfizer SARS-CoV-2 Monovalent Vaccination (12+ Yrs) PURPLE 07/17/2020,06/25/2020 Social History Tobacco Use Types Packs/Day Years Used Date Smoking Tobacco: Never Smokeless Tobacco: Never Alcohol Use Standard Drinks/Week Comments Yes 0 (1 standard drink = 0.6 oz pur e alcohol) Occasional Personal Safety Answer Date Recorded Getting School Help Needed Not on file 06/20 Comments Unknown Sex and Gender Information Value Date Recorded Sex Assigned at Not on file 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 Gender Identity Not on file Sexual Orientation Not on file Last Filed Vital Signs Vital Sign Reading Time Taken Comments Blood Pressure 100/68 11/01/2020 9:51 AM CDT Pulse 64 11/01/2020 9:51 AM CDT Temperature 36.7 C (98 F) 11/01/2020 9:51 AM CDT Respiratory Rate 16 10/07/2020 2:59 PM CDT Oxygen Saturation 100% 11/01/2020 9:51 AM CDT Inhaled Oxygen Concentration - - Weight 73.3 kg (161 lb 9.6 oz) 10/21/2020 8:33 A M CDT Height 170.2 cm (5' 7) 10/07/2020 2:59 PM CDT Body Mass Index 25.31 10/07/2020 2:59 PM CDT Plan of Treatment Not on file Insurance CLAIMS CLAIMS Care Teams Technical Training Manager Relationship Specialty Start Date End Date Rachael Cote MD PCP - General Family Medicine 04/01/20 Duy Baez MD Medical Oncologist/Hematologis t Hematology and Oncology 03/06/20 Som Tabares MD Gastroenterology 04/02/20
--- OUTSIDE RECORDS SUMMARY | 2024-11-28 15:24 | XMS_ITS | Clinical Summary ---
Author Organization [facility] Address [address] [place] [address] Care Team Providers Care Well Driller Helper Name Role Phone Duy Baez MD Unavailable [phone] Rachael Cote MD Primary Care Provider + Som Tabares MD Unavailable [phone] Allergies Active Allergy Reactions Criticality Noted [...] SARS-CoV-2 Monovalent Vaccination (12+ Yrs) PURPLE 07/17/2020,06/25/2020 Surgical History Surgery Date Site/Laterality Comments CHOLECYSTECTOMY HERNIA REPAIR Medical History Medical History Date Comments Anemia History of necrotizing enterocolitis 06/20/2020 Ulceration of colon determined by endoscopy 06/20 Menometrorrhagia 06/20/2020 Social History Tobacco Use Types Packs/Day Years [...] on file 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 Gender Identity Not on file Sexual Orientation Not on file Obstetrics History Last Filed Vital Signs Vital Sign Reading [...] 10/07/2020 2:59 PM CDT Plan of Treatment Health Maintenance Due Date Last Done Comments Cervical Cancer Screening 1991 Depression Screening 1991 Hepatitis C Screening 1991 DTaP/Tdap/Td Vaccine (1 - Tdap) 2002 Varicella Vaccines (1 of 2 - 13+ 2-dose series) 2004 Hepatitis B Screening 2009 Regular Well Visit/Exam 18-64 2009 HPV Vaccines (1 - 3-dose SCD M series) 2018 Covid-19 Vaccine (2023-2 5 season) 2023 06/23/2021, 07/17/2020, 06/25/2020 Influenza Vaccine (#1) 2024 2, 06/23/2021, 02/29/2020 Pneumococcal vaccine <65 Aged Out No longer eligible based on patient's age to complete this topic Insurance CLAIMS CLAIMS Care Teams Well Driller Helper Relationship Specialty Start Date End Date Rachael Cote MD PCP - General Family Medicine 04/01/20 Duy Baez MD Medical Oncologist/Hematologis t Hematology and Oncology 03/06/20 Som Tabares MD Gastroenterology 04/02/20
[2024-11-28 19:13] LABS: Alanine Aminotransferase 37 U/L (6-35); Albumin Level 4.4 g/dL (3.5-5.1); Alkaline Phosphatase 53 U/L (38-126); Anion Gap 10 mmol/L (4-12); Aspartate Amino Transferase 43 U/L (14-36); Bilirubin,Total 0.5 mg/dL (0.2-1.3); Blood Urea Nitrogen 10 mg/dL (7-17); Calcium 9.7 mg/dL (8.4-10.2); Carbon Dioxide 24 mmol/L (22-30); Chloride 101 mmol/L (98-107); Estimated Glomerular Filt Rate > 60; Glucose 92 mg/dL (65-110); Potassium 4.0 mmol/L (3.4-5.0); Sodium 135 mmol/L (137-145); Total Protein 8.3 g/dL (6.3-8.2)
[2024-11-28 19:28] LABS: Hematocrit 39.7 % (37.0-47.0); Hemoglobin 13.2 g/dL (12.0-15.0); Immature Granulocyte Percent A 0.1 % (0-0.5); Immature Platelet Fraction Pct 17.1 % (0.9-11.2); Immature Reticulocyte Fraction 11.2 % (3.0-15.9); Lymphocytes Absolute Auto 3.32 K/mm3 (0.9-3.2); Mean Corpuscular HGB Conc 33.2 g/dl (32-36); Mean Corpuscular Hemoglobin 28.8 pg (26-34); Mean Corpuscular Volume 86.5 fl (80-100); Nucleated Red Blood Cells Absolute Auto 0.000 K/mm3 (0.0-0.012); Nucleated Red Blood Cells Perc 0.0 % (0.0-0.2); Platelet Count Result 179 k/mm3 (150-375); Red Blood Count 4.59 M/mm3 (4.2-5.4); Reticulocyte Hemoglobin Conten 33.9 pg (28.2-36.6); Reticulocytes Absolute 0.06 10^6/uL (0.02-0.10); White Blood Count 8.1 K/mm3 (4.5-10.0)
[2024-11-28 20:00] LABS: Ferritin 11.50 ng/mL (6.24-137)
[2024-11-28 20:08] LABS: Vitamin B12 335.0 pg/mL (239-931)
[2024-11-29 16:08] LABS: Deamidated Gliadin Abs, IgA 5 units (0-19); Deamidated Gliadin Abs, IgG 2 units (0-19); Immunoglobulin A, Qn 399 mg/dL (87-352)
== END 2024-11-28 15:21 | disposition home or self-care (01) ==
LOC: ANHGOSHLAB 15:21
PROVIDERS: PCP Family Medicine; Visit Provider Family Medicine
DX: D50.9 Iron deficiency anemia, unspecified (principal); D51.9 Vitamin B12 deficiency anemia, unspecified; D64.9 Anemia, unspecified; E55.9 Vitamin D deficiency, unspecified
CPT/HCPCS: 36415; 80053; 82306; 82607; 82728; 82784; 85025; 85046; 85055; 86231; 86258

== ENCOUNTER 2025-03-30 09:46 | Outpatient (CLI) | payer OTHER, SELFPAY ==
--- NOTE | ~2025-03-30 | US_ITS ---
ULTRASOUND ABDOMEN LIMITED (RIGHT UPPER QUADRANT) Clinical History: R74.8 - Abnormal levels of other serum enzymes Comparison: CT abdomen pelvis 07/13/2018 Technique: Right upper quadrant sonography Findings: Liver: Enlarged. Echogenic. No intrahepatic biliary ductal dilatation. Normal hepatopedal flow main portal vein. Common Duct: Normal caliber. 3 mm. Gallbladder: Removed. Pancreas: Obscured by bowel gas. Right kidney: Unremarkable. Retrohepatic IVC: Unremarkable. IMPRESSION: 1. No acute findings. 2. Hepatomegaly, with steatosis and/or hepatocellular disease. Reviewed, dictated and finalized at location R. [facility] OFFICER
== END 2025-03-30 09:47 | disposition home or self-care (01) ==
LOC: MICIMG 09:47
PROVIDERS: PCP Family Medicine; Visit Provider Family Medicine
DX: R74.8 Abnormal levels of other serum enzymes (principal); K76.0 Fatty (change of) liver, not elsewhere classified
CPT/HCPCS: 76705